=== PATIENT | male | born 1960 | race Caucasian/White ===

== ENCOUNTER 2017-06-10 19:35 | Inpatient (IN) ==
[2017-06-10] MEDS ORDERED: 0.9 % SODIUM CHLORIDE 1,000 ML IV ONE ×2 (19:44→21:10)
[2017-06-10] MEDS ORDERED: ONDANSETRON 4 MG/2 ML VIAL IV ONE (19:55)
[2017-06-10] MEDS ORDERED: ONDANSETRON ODT 4 MG TABLET SL ONE (19:55)
[2017-06-10] MEDS ORDERED: ONDANSETRON ODT 4 MG TABLET ONE (20:02)
[2017-06-10] MEDS ORDERED: INSULIN REGULAR, HUMAN 1 UNIT/0.01 ML UNIT IV ONE (20:11)
[2017-06-10] MEDS ORDERED: INSULIN REGULAR, HUMAN 50 UNIT in 0.9 % SODIUM CHLORIDE 99.5 ML IV ONE (20:12)
[2017-06-10] MEDS ORDERED: INSULIN REGULAR, HUMAN 1 UNIT/0.01 ML UNIT ONE (20:23)
[2017-06-10] MEDS ORDERED: LORazepam 2 MG/ML VIAL IV ONE (20:29)
--- NOTE | 2017-06-10 20:37 | Emergency Department Note ---
General Adult HPI - General Chief complaint: Blood Sugar Problem Stated complaint: Hyperglycemic Time Seen by Provider: 06/10/17 19:48 - History of Present Illness HPI Narrative: 56-year-old male presents with high blood sugar and vomiting. States he woke up this morning about about 6 AM and was not feeling well. He notices insulin pump had fallen out and the site was not in contact with his skin. He change sites and thought it was working again. States he did not feel good so he slept most the day. We will get this afternoon to find that his pump was still not working, or he does not believe it was working. States at home his blood sugars reading high. He is vomited multiple times. Generally does not feel well and has pain all over. Also feels very anxious. Yesterday he felt fine without any illness. Denies fever. No cough or cold symptoms. Associated symptoms: Reports: malaise, nausea/vomiting. Denies: chest pain, cough, diaphoresis, headaches, shortness of breath, syncope, weakness - Related Data Home Medications Medication Instructions Recorded Confirmed subcutaneous insulin pump See Dose Instructions SQ .MEDSUPPLY 02/08/15 06/11/17 Omeprazole [PriLOSEC] 20 mg PO ACB 06/10/17 06/10/17 Allergies Allergy/AdvReac Type Severity Reaction Status Date / Time No Known Drug Allergies Allergy Verified 06/10/17 19:42 Review of Systems All systems ED: reviewed and negative except as stated. 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) Elevated blood-pressure reading without diagnosis of hypertension (Chronic) Pancreatitis (Chronic) Prostate abscess (Chronic) Chews tobacco (Chronic) Esophagitis (Chronic) Adenomatous colon polyp (Chronic) Hypoactive sexual desire disorder (Chronic) Iritis (Chronic) Tubular adenoma (Inactive 09/21/14) Hypoglycemia (Resolved 08/08/14) Insulin-dependent diabetes mellitus with ketoacidosis (Inactive) Anemia (Inactive) Past Surgical History History of neck surgery (Resolved) History of esophagogastroduodenoscopy (Resolved 02/15/13) History of colonoscopy with polypectomy (Resolved 07/28/14) Medical history: Reports: diabetes, hypertension, other (Pancreatitis) Surgical history ED: Reports: other (Neck surgery) - Social History smoking status: Smokeless tobacco Alcohol use: Reports: None Drug use: Reports: none Physical Exam - General Limitations: no limitations General appearance: anxious, other (Vomiting) - Head Head exam: atraumatic, normocephalic, normal inspection - Eye Eye exam: Present: normal appearance. Absent: conjunctival injection - ENT ENT exam: normal exam, normal oropharynx, mucous membranes moist (Fruity odor to breath), TM's normal bilaterally, normal external ear exam - Neck Neck exam: Present: normal inspection, trachea midline. Absent: lymphadenopathy - Chest Chest inspection: Present: normal inspection, symmetric chest wall rise - Respiratory Respiratory exam: Present: normal lung sounds bilaterally. Absent: respiratory distress, wheezes, accessory muscle use - Cardiovascular Cardiovascular exam: Present: regular rate, normal heart sounds - Abdominal Exam Abdominal exam: Present: soft, normal bowel sounds. Absent: distention, tenderness, guarding - Extremities Exam Extremities exam: Present: normal inspection, normal capillary refill - Neurological Exam Neurological exam: Present: alert, oriented X3, normal gait - Psychiatric Psychiatric exam: Present: normal affect, normal mood - Skin Skin exam: Present: warm, dry, intact, normal color, other (Flushed and warm) Course Course Narrative: Patient was placed on an insulin drip per DKA protocol. Protocol was initiated. Dr. Mann the hospitalist was contacted who agrees to admit patient and assume care. Vital Signs Temperature 97.0 F 06/10/17 19:36 Pulse Rate 106 H 06/10/17 19:36 Respiratory Rate 28 H 06/10/17 19:36 Blood Pressure 125/63 06/10/17 19:36 Pulse Oximetry (%) 100 06/10/17 19:36 Temperature 99.4 F H 06/11/17 08:00 Pulse Rate 96 H 06/11/17 07:35 Respiratory Rate 13 06/11/17 09:00 Blood Pressure 108/59 06/11/17 09:00 Pulse Oximetry (%) 100 06/11/17 09:00 Medical Decision Making - Lab Data Lab results reviewed: Yes I reviewed the patient's lab results. Result diagrams: 06/11/17 08:00 06/11/17 08:00 Lab Results 06/10/17 06/10/17 06/10/17 Range/Units 00:05 19:46 19:46 WBC 31.1 H* (4.5-11.0) K/mcL RBC 4.21 L (4.50-5.90) M/mcL Hgb 14.3 (13.5-16.5) g/dL Hct 43.2 (41.0-55.0) % POC Hct (41.0-55.0) % MCV 102.7 H (80.0-100.0) fL MCH 34.1 H (26.0-34.0) pg MCHC 33.2 (31.0-36.0) g/dL RDW 12.4 (11.5-14.5) % Plt Count 288 (140-440) K/mcL MPV 11.1 H (7.4-10.4) fL Gran % 88.0 H (38.0-78.0) % Lymph % (Auto) 4.6 L (15.5-49.0) % [place] % (Auto) 6.2 (1.0-12.0) % Eos % (Auto) 0.7 (0.0-7.0) % Baso % (Auto) 0.5 (0.0-2.0) % Gran # 27.4 H (1.8-8.0) K/mcL Lymph # (Auto) 1.4 L (1.5-4.8) K/mcL [place] # (Auto) 1.9 H (0.1-0.9) K/mcL Eos # (Auto) 0.2 (0.0-0.7) K/mcL Baso # (Auto) 0.2 (0.0-0.3) K/mcL Differential Comment Y ABG Methemoglobin 0.3 L (0.4-1.5) % VBG pH 7.40 (7.32-7.42) U VBG pCO2 37.4 L (41.0-51.0) mmHg VBG pO2 60 H (25-40) mmHg VBG HCO3 22.6 L (24.0-28.0) mmol/L VBG Total CO2 23.7 L (25.0-29.0) mmol/L VBG O2 Saturation 85.7 H (40.0-70.0) % VBG Base Excess -1.9 (-2.0-2.0) VBG Lactic Acid (0.5-2.2) mmol/L Carboxyhemoglobin 3.0 H (0.0-1.5) % THgb Total Hemoglobin 11.6 L (13.5-16.5) gm/dL O2 Delivery Level Not Reportable POC Sodium (133-145) mmol/L Sodium 133 (133-145) mmol/L POC Potassium (3.3-5.1) mmol/L Potassium 5.4 H (3.3-5.1) mmol/L POC Chloride (96-108) mmol/L Chloride 67 L (96-108) mmol/L Carbon Dioxide 8 L* (22-30) mmol/L POC Total CO2 (22-30) mmol/L Anion Gap Not Reportable POC BUN (6-20) mg/dl BUN 35 H (6-20) mg/dl Creatinine 3.0 H (0.7-1.2) mg/dl POC Creatinine (0.7-1.2) mg/dl GFR Calculation 22 Glucose 803 H* (70-105) mg/dL POC Glucose (70-105) mg/dL Calcium 10.7 H (8.6-10.4) mg/dl POC WB Ioniz Calcium (1.16-1.32) mmol/L Total Bilirubin 0.7 (0.0-1.0) mg/dL AST 30 (0-37) U/l ALT 25 (0-40) U/l Alkaline Phosphatase 94 (39-117) U/L Troponin T (0-0.03) ng/ml Total Protein 7.7 (5.9-8.4) gm/dL Albumin 4.6 (3.2-5.2) gm/dL Globulin 3.1 (2.2-3.7) gm/dL Albumin/Globulin Ratio 1.5 (1.0-2.3) Beta-Hydroxybutyrate (< 0.27) mmol/L 06/10/17 06/10/17 06/10/17 Range/Units 19:46 20:10 20:18 WBC (4.5-11.0) K/mcL RBC (4.50-5.90) M/mcL Hgb (13.5-16.5) g/dL Hct (41.0-55.0) % POC Hct 47.0 (41.0-55.0) % MCV (80.0-100.0) fL MCH (26.0-34.0) pg MCHC (31.0-36.0) g/dL RDW (11.5-14.5) % Plt Count (140-440) K/mcL MPV (7.4-10.4) fL Gran % (38.0-78.0) % Lymph % (Auto) (15.5-49.0) % [place] % (Auto) (1.0-12.0) % Eos % (Auto) (0.0-7.0) % Baso % (Auto) (0.0-2.0) % Gran # (1.8-8.0) K/mcL Lymph # (Auto) (1.5-4.8) K/mcL [place] # (Auto) (0.1-0.9) K/mcL Eos # (Auto) (0.0-0.7) K/mcL Baso # (Auto) (0.0-0.3) K/mcL Differential Comment ABG Methemoglobin 0 L (0.4-1.5) % VBG pH 7.12 L* (7.32-7.42) U VBG pCO2 32.4 L (41.0-51.0) mmHg VBG pO2 76 H (25-40) mmHg VBG HCO3 10.3 L* (24.0-28.0) mmol/L VBG Total CO2 11.3 L (25.0-29.0) mmol/L VBG O2 Saturation 86.5 H (40.0-70.0) % VBG Base Excess -17.9 L (-2.0-2.0) VBG Lactic Acid 11.5 H* (0.5-2.2) mmol/L Carboxyhemoglobin 2.6 H (0.0-1.5) % THgb Total Hemoglobin 13.4 L (13.5-16.5) gm/dL O2 Delivery Level Not Reportable POC Sodium 129 L (133-145) mmol/L Sodium (133-145) mmol/L POC Potassium 5.0 (3.3-5.1) mmol/L Potassium (3.3-5.1) mmol/L POC Chloride 84 L (96-108) mmol/L Chloride (96-108) mmol/L Carbon Dioxide (22-30) mmol/L POC Total CO2 12 L (22-30) mmol/L Anion Gap POC BUN 33 H (6-20) mg/dl BUN (6-20) mg/dl Creatinine (0.7-1.2) mg/dl POC Creatinine 2.7 H (0.7-1.2) mg/dl GFR Calculation Glucose (70-105) mg/dL POC Glucose > 700 H* (70-105) mg/dL Calcium (8.6-10.4) mg/dl POC WB Ioniz Calcium 1.12 L (1.16-1.32) mmol/L Total Bilirubin (0.0-1.0) mg/dL AST (0-37) U/l ALT (0-40) U/l Alkaline Phosphatase (39-117) U/L Troponin T (0-0.03) ng/ml Total Protein (5.9-8.4) gm/dL Albumin (3.2-5.2) gm/dL Globulin (2.2-3.7) gm/dL Albumin/Globulin Ratio (1.0-2.3) Beta-Hydroxybutyrate (< 0.27) mmol/L 06/10/17 06/10/17 06/10/17 Range/Units 22:01 22:01 23:20 WBC (4.5-11.0) K/mcL RBC (4.50-5.90) M/mcL Hgb (13.5-16.5) g/dL Hct (41.0-55.0) % POC Hct (41.0-55.0) % MCV (80.0-100.0) fL MCH (26.0-34.0) pg MCHC (31.0-36.0) g/dL RDW (11.5-14.5) % Plt Count (140-440) K/mcL MPV (7.4-10.4) fL Gran % (38.0-78.0) % Lymph % (Auto) (15.5-49.0) % [place] % (Auto) (1.0-12.0) % Eos % (Auto) (0.0-7.0) % Baso % (Auto) (0.0-2.0) % Gran # (1.8-8.0) K/mcL Lymph # (Auto) (1.5-4.8) K/mcL [place] # (Auto) (0.1-0.9) K/mcL Eos # (Auto) (0.0-0.7) K/mcL Baso # (Auto) (0.0-0.3) K/mcL Differential Comment ABG Methemoglobin (0.4-1.5) % VBG pH (7.32-7.42) U VBG pCO2 (41.0-51.0) mmHg VBG pO2 (25-40) mmHg VBG HCO3 (24.0-28.0) mmol/L VBG Total CO2 (25.0-29.0) mmol/L VBG O2 Saturation (40.0-70.0) % VBG Base Excess (-2.0-2.0) VBG Lactic Acid 3.6 H (0.5-2.2) mmol/L Carboxyhemoglobin (0.0-1.5) % THgb Total Hemoglobin (13.5-16.5) gm/dL O2 Delivery Level POC Sodium (133-145) mmol/L Sodium (133-145) mmol/L POC Potassium (3.3-5.1) mmol/L Potassium (3.3-5.1) mmol/L POC Chloride (96-108) mmol/L Chloride (96-108) mmol/L Carbon Dioxide (22-30) mmol/L POC Total CO2 (22-30) mmol/L Anion Gap POC BUN (6-20) mg/dl BUN (6-20) mg/dl Creatinine (0.7-1.2) mg/dl POC Creatinine (0.7-1.2) mg/dl GFR Calculation Glucose (70-105) mg/dL POC Glucose (70-105) mg/dL Calcium (8.6-10.4) mg/dl POC WB Ioniz Calcium (1.16-1.32) mmol/L Total Bilirubin (0.0-1.0) mg/dL AST (0-37) U/l ALT (0-40) U/l Alkaline Phosphatase (39-117) U/L Troponin T < 0.01 (0-0.03) ng/ml Total Protein (5.9-8.4) gm/dL Albumin (3.2-5.2) gm/dL Globulin (2.2-3.7) gm/dL Albumin/Globulin Ratio (1.0-2.3) Beta-Hydroxybutyrate 13.10 H (< 0.27) mmol/L - Radiology Data Radiology results reviewed: Yes I reviewed the patient's radiology results. Disposition Pt seen by BREAD DISTRIBUTOR/PA only: Yes Clinical Impression: Hyperglycemic crisis in diabetes mellitus Disposition: Xfer As Inpt ([facility]) Condition: Fair
[2017-06-10 20:40] LABS: ABG Methemoglobin 0 % (0.4-1.5); VBG Base Excess -17.9 (-2.0-2.0); VBG HCO3 10.3 mmol/L (24.0-28.0); VBG Oxygen Saturation 86.5 % (40.0-70.0); VBG PCO2 32.4 mmHg (41.0-51.0); VBG PH 7.12 U (7.32-7.42); VBG PO2 76 mmHg (25-40); VBG Total CO2 11.3 mmol/L (25.0-29.0)
[2017-06-10 20:48] LABS: Basophils # (Auto) 0.2 K/mcL (0.0-0.3); Basophils % (Auto) 0.5 % (0.0-2.0); Eosinophils # (Auto) 0.2 K/mcL (0.0-0.7); Eosinophils % (Auto) 0.7 % (0.0-7.0); Lymphocytes # (Auto) 1.4 K/mcL (1.5-4.8); Lymphocytes % (Auto) 4.6 % (15.5-49.0); Mean Cell Volume 102.7 fL (80.0-100.0); Mean Corpuscular HGB Conc 33.2 g/dL (31.0-36.0); Mean Corpuscular Hemoglobin 34.1 pg (26.0-34.0); Monocytes # (Auto) 1.9 K/mcL (0.1-0.9); Monocytes % (Auto) 6.2 % (1.0-12.0); Platelet Count 288 K/mcL (140-440); RBC 4.21 M/mcL (4.50-5.90); Red Cell Distribution Width 12.4 % (11.5-14.5)
[2017-06-10 21:08] LABS: ALT/SGPT 25 U/l (0-40); Albumin 4.6 gm/dL (3.2-5.2); Albumin/Globulin Ratio 1.5 (1.0-2.3); Alkaline Phosphatase 94 U/L (39-117); Blood Urea Nitrogen 35 mg/dl (6-20)
--- NOTE | 2017-06-10 22:47 | Internal Med History&Physical ---
Medical - H&P: HPI Patient information: Note initiated : 06/10/17 at 10:44 pm Service Date, if different from initiated Date: [] Patient: Prosper Alston a 56 y/o M admitted on for Hyperglycemic. Chief Complaint: N/V, elevated CBG History of present illness: Mr. Alston is a 56 year old M with a history of type 1 diabetes, diabetic neuropathy, hypertension, not on meds, gastroesophageal reflux who presents with nausea, vomiting and elevated glucose. History is obtained speaking with the patient, as well as reviewing old records which are summarized below as appropriate. Patient states for the last week or so he's been having trouble getting his blood glucoses under control. Apparently he is been having hypoglycemia at night at times. Story rambles at times, and sometimes difficult to follow. Apparently he turned off his insulin pump overnight secondary to low glucose, woke early in the morning and restarted it. He awoke at 6 AM and found that it was suspended in disconnected. He started the pump at another site and went back to sleep. 8 AM his glucose is greater than 600, he again tried another site and fell asleep again. Subsequently family came and woke him up. His glucose was still high. He tried to take 10 or 20 units subcutaneously from his insulin vial, but that did not help. During this time he developed nausea with vomiting. He had emesis about every 20 minutes during most of the day. He is now complaining of some chest pain from the emesis and retching. He's had no chest tightness or squeezing. He is also complaining of vision changes, his vision becoming blurry than white. Because of these ongoing symptoms of hyperglycemia, EMS was summoned and he was brought to the emergency department. In ED, initial [id number] testing showed a glucose greater than 700. Labs were drawn, he is bolus was insulin and started on insulin drip. Subsequently he is found to be significantly acidotic on VBG as well as on basic panel with low bicarbonate, had elevated lactate a 11. Beta-hydroxybutyrate elevated at 13.1, all consistent with DKA. As noted the patient denies any chest squeezing or tightness. He is feeling short of breath and is mildly dyspneic. He's had no cough or sputum production. He's had no fever but he has felt chilled after bouts of emesis today. He does not recall choking or thinking he swallowed any emesis. He chronically feels lightheaded when he stands, that's unchanged today, though may be a bit worse. He has chronic burning in his feet and decreased sensation in his feet. Denies a history of renal disease, no dysuria. No rashes. No sore throat, no headache, no sinus pressure or drainage. Patient is being admitted the intensive care unit for treatment of diabetic ketoacidosis. Review of systems: Except as noted in the HPI, the remainder of a 10 point ROS is negative. Medical - H&P: PMH Medical history: Type I DM, diagnosed in his 30's Diabetic neuropathy Diabetic retinopathy Iritis GERD Hypertension, not on medications History of prostate abscess History of adenomatous polyp History of Pancreatitis History of osteomyelitis of right 4th toe Surgical history: Cervical spinal fusion, anterior approach Left finger amputation Right 4th toe amputation Pertinent family history: No history of diabetes Social history: Non-smoker of tobacco, occasional marijuana. Drinks about a drink a day. Medical - H&P: Meds Home Medications Medication Instructions Recorded Confirmed Type subcutaneous insulin pump See Dose Instructions .ROUTE 02/08/15 02/08/15 History .MEDSUPPLY Omeprazole [PriLOSEC] 20 mg PO ACB 06/10/17 06/10/17 History Allergies Allergy/AdvReac Type Severity Reaction Status Date / Time No Known Drug Allergies Allergy Verified 06/10/17 19:42 Medical - H&P: Exam - Constitutional Vitals: Temp Pulse Resp BP Pulse Ox 97.0 F 103 H 28 H 117/80 100 06/10/17 19:36 06/10/17 20:32 06/10/17 19:36 06/10/17 20:17 06/10/17 20:32 General appearance: average body habitus, mild distress - Head Head exam: Present: atraumatic, normal inspection - Eye Eye exam: Present: normal appearance. Absent: conjunctival injection, PERRL ( Right pupil 4 mm, sluggish to direct light; left pupil 3 mm, reactive to light) , scleral icterus - ENT ENT exam: Present: mucous membranes dry, normal oropharynx - Expanded ENT Exam Throat exam: Absent: post pharyngeal erythema - Neck Neck exam: Present: full ROM. Absent: lymphadenopathy, meningismus, thyromegaly - Respiratory Respiratory exam: Present: normal respiratory exam, CTAB. Absent: accessory muscle use, rhonchi, wheezes - Cardiovascular Cardiovascular exam: Present: normal rate and rhythm, systolic murmur. Absent: gallop - Expanded Cardiovascular Exam Type of murmur: Present: systolic Location: Present: apex Intensity: 2/6 Peripheral pulses: 2+: carotid (L), carotid (R) - GI/Abdominal GI/Abdominal exam: Present: normal bowel sounds, soft, tenderness. Absent: guarding, rebound - Extremities Exam Extremities exam: Present: normal inspection. Absent: joint swelling, pedal edema, tenderness - Back Exam Back exam: Present: normal inspection. Absent: CVA tenderness (L), CVA tenderness (R) - Neurological Exam Neurological exam: Present: alert, CN II-XII intact (except decreased VA and pupil abn as noted above. Responses rambling at times.) - Psychiatric Psychiatric exam: Present: normal affect - Skin Skin exam: Present: dry, warm. Absent: mottled Medical - H&P: Reslt - Labs CBC & Chem 7: 06/10/17 19:46 06/10/17 19:46 Labs: Short CBC 06/10/17 Range/Units 19:46 WBC 31.1 H* (4.5-11.0) K/mcL Hgb 14.3 (13.5-16.5) g/dL Hct 43.2 (41.0-55.0) % Plt Count 288 (140-440) K/mcL BMP 06/10/17 19:46 Sodium 133 Potassium 5.4 H Chloride 67 L Carbon Dioxide 8 L* BUN 35 H Creatinine 3.0 H Glucose 803 H* Calcium 10.7 H Liver Function 06/10/17 Range/Units 19:46 Total Bilirubin 0.7 (0.0-1.0) mg/dL AST 30 (0-37) U/l ALT 25 (0-40) U/l Alkaline Phosphatase 94 (39-117) U/L Albumin 4.6 (3.2-5.2) gm/dL Troponin <0.01 Beta hydroxybutyrate 13.1 - ABG Interpretation ABG results: 06/10/17 20:10 ABG Methemoglobin 0 L VBG pH 7.12 L* VBG pCO2 32.4 L VBG pO2 76 H VBG HCO3 10.3 L* VBG Total CO2 11.3 L VBG O2 Saturation 86.5 H VBG Base Excess -17.9 L - EKG Data -: EKG Reviewed by Myself EKG shows normal: sinus rhythm, ST-T waves (no injury pattern) - Imaging and Cardiology Chest x-ray Status: image reviewed by me Additional comments: Clear lung hoffmann Medical - H&P: A/P (1) Diabetic ketoacidosis associated with type 1 diabetes mellitus Problem details: Suspect related to malfunction of insulin pump Current visit : Yes Status: Acute (2) Lactic acid acidosis Problem details: Suspect from DKA/D-lactic acidosis; lower suspicion of sepsis Current visit: Yes Status: Acute (3) Acute renal failure (ARF) Current visit: Yes Status: Acute - Narrative A/P Narrative: 56 y/o with Type 1 DM, presents with nausea, vomiting and elevated CBG at home. He has had problems controlling glucose at home and had to replace his pump access 2-3 times in early and mid-morning, which appear to be malfunctioning. DKA. Suspected etiology is pump/needle malfunction. Has leukocytosis, but CXR is clear, and no pulmonary symptoms. No dysuria, but hasn't given a urine sample to rule out UTI. No other infectious source. Troponin is <0.01. Plan: -Admit to ICU -Insulin gtt -IV fluid resuscitation -Serial electrolytes, phosphorous -Replete potassium, phos and others PRN Acute renal failure. Patient w/o history of renal disease per his history, and limited outpatient records. Suspect secondary to pre-renal causes. Plan: -IVF -Trend Cr -Codi and UCr for FENa -F/U UA for evidence of casts Lactic acidosis. Suspect secondary to DKA (D-lactic acidosis) and not sepsis. No source of infection identified, though UA pending. Plan: -Trend lactate after fluids -If fever or becomes unstable, will culture and begin empiric antibiotics Leukocytosis. Possible stress response. As above, lower suspicion of sepsis. Plan: -Follow with therapy of DKA. Hyperkalema. Likely due to acidosis. Will need to monitor for subsequent hypokalemia. Plan: Monitor, replete is becomes hypokalemic Code Status: FULL CODE Prophy: PPI and enoxaparin.
[2017-06-10] MEDS ORDERED: HYDROmorphone 2 MG/ML SYRINGE IV PRN (23:57)
[2017-06-10] MEDS ORDERED: ACETAMINOPHEN 325 MG TABLET PO PRN (23:57)
[2017-06-10] MEDS ORDERED: DEXTROSE 50% 50 ML SYRINGE IV PRN (23:57)
[2017-06-11] MEDS: 0.9 % SODIUM CHLORIDE 1,000 ML IV SCH ×4 (00:01→22:14)
[2017-06-11] MEDS ORDERED: INSULIN REGULAR, HUMAN 1 UNIT/0.01 ML UNIT ONE ×4 (00:12→04:09)
[2017-06-11 01:07] LABS: ABG Methemoglobin 0.3 % (0.4-1.5); VBG Base Excess -1.9 (-2.0-2.0); VBG HCO3 22.6 mmol/L (24.0-28.0); VBG Oxygen Saturation 85.7 % (40.0-70.0); VBG PCO2 37.4 mmHg (41.0-51.0); VBG PO2 60 mmHg (25-40); VBG Total CO2 23.7 mmol/L (25.0-29.0)
[2017-06-11 01:27] LABS: Blood Urea Nitrogen 35 mg/dl (6-20)
[2017-06-11] MEDS: INSULIN REGULAR, HUMAN 50 UNIT in 0.9 % SODIUM CHLORIDE 100 ML IV SCH ×2 (04:12→08:13)
[2017-06-11] MEDS ORDERED: PANTOPRAZOLE 40 MG TABLET ONE (04:22)
[2017-06-11] MEDS ORDERED: ONDANSETRON 4 MG/2 ML VIAL ONE (04:25)
[2017-06-11] MEDS: DEXTROSE 5%-1/2NS 1,000 ML IV SCH ×4 (05:11→22:14)
[2017-06-11 05:37] LABS: ABG Methemoglobin 0.3 % (0.4-1.5); VBG Base Excess 3.1 (-2.0-2.0); VBG HCO3 26.7 mmol/L (24.0-28.0); VBG Oxygen Saturation 92.6 % (40.0-70.0); VBG PH 7.48 U (7.32-7.42); VBG PO2 108 mmHg (25-40); VBG Total CO2 27.8 mmol/L (25.0-29.0)
[2017-06-11] MEDS: 0.9 % SODIUM CHLORIDE 10 ML SYRINGE IV SCH ×3 (05:57→22:16)
--- NOTE | 2017-06-11 06:00 | XRay Report ---
CLINICAL INFORMATION: Elevated white blood cell count and fever COMPARISON: None. FINDINGS:The heart size, mediastinum and pulmonary vessels are unremarkable. The lungs are clear. Prominent, yet normal, nipple shadows are symmetric over both midlungs. There are no effusions. The bones and soft tissues are within normal limits. IMPRESSION: Normal chest. Interpreted and Authenticated by: Shane Ha 06/11/17
[2017-06-11 06:47] LABS: ALT/SGPT 17 U/l (0-40); Albumin/Globulin Ratio 1.3 (1.0-2.3); Alkaline Phosphatase 57 U/L (39-117); Bilirubin,Direct < 0.2 mg/dL (0.0-0.3); Blood Urea Nitrogen 34 mg/dl (6-20); Gamma Glutamyl Transpeptidase 29 U/L (8-61); Magnesium 1.9 mg/dL (1.6-2.5); Uric Acid 8.1 mg/dL (2.5-8.0)
[2017-06-11] MEDS: PANTOPRAZOLE 40 MG TABLET PO SCH (07:19)
[2017-06-11] MEDS: ENOXAPARIN 40 MG/0.4 ML SYRINGE SQ SCH (07:21)
[2017-06-11] MEDS ORDERED: POTASSIUM PHOSPHATE 20 MEQ in DEXTROSE 5% IN WATER 250 ML IV ONE (08:03)
[2017-06-11] MEDS: ONDANSETRON 4 MG/2 ML VIAL IV PRN ×4 (08:11→23:48)
[2017-06-11] MEDS ORDERED: DEXTROSE 50% 50 ML SYRINGE IV PRN (08:45)
[2017-06-11] MEDS: DEXTROSE 50% 50 ML VIAL IV PRN ×2 (08:55→13:25)
[2017-06-11 09:01] LABS: Basophils # (Auto) 0 K/mcL (0.0-0.3); Basophils % (Auto) 0.2 % (0.0-2.0); Eosinophils # (Auto) 0.2 K/mcL (0.0-0.7); Granulocytes % (Auto) 84.1 % (38.0-78.0); Lymphocytes % (Auto) 8.4 % (15.5-49.0); Mean Cell Volume 100.8 fL (80.0-100.0); Mean Corpuscular HGB Conc 34.5 g/dL (31.0-36.0); Mean Corpuscular Hemoglobin 34.8 pg (26.0-34.0); Monocytes # (Auto) 1.5 K/mcL (0.1-0.9); Monocytes % (Auto) 6.3 % (1.0-12.0); Platelet Count 214 K/mcL (140-440); RBC 3.19 M/mcL (4.50-5.90); Red Cell Distribution Width 12.9 % (11.5-14.5)
[2017-06-11 09:14] LABS: Blood Urea Nitrogen 33 mg/dl (6-20)
[2017-06-11 12:20] LABS: Appearance,Urine HAZY; Bacteria,Urine 0 /hpf (0); Bilirubin,Urine NEG (NEG); Color,Urine YELLOW; Glucose,Urine (UA) >=500 mg/dL (NEG); Leukocyte Esterase,Urine NEG /uL (NEG); Mucus,Urine FEW /hpf (0); Nitrate,Urine NEG (NEG); Protein,Urine NEG (NEG); Specific Gravity,Urine 1.022 (1.000-1.035); Urine Blood NEG mg/dL (<0.03); Urine Budding Yeast FEW /hpf (0); Urine Hyaline Cast 1 /lpf (0-2); Urine RBC 0 /hpf (0-1); Urine Squamous Epithelial Cell 1 /hpf (0-4); Urine WBC < 1 /hpf (0-4); Urobilinogen,Urine NEG (NEG)
[2017-06-11 13:19] LABS: Blood Urea Nitrogen 31 mg/dl (6-20)
[2017-06-11] MEDS ORDERED: INSULIN GLARGINE, HUMAN 1 UNIT/0.01 ML SQ ONE (14:27)
[2017-06-11] MEDS ORDERED: PROCHLORPERAZINE 10 MG/2 ML VIAL IV PRN (14:30)
--- NOTE | 2017-06-11 14:42 | Internal Med Progress Note ---
Medical - PN: Subj Patient information: Note initiated : 06/11/17 at 2:36 pm Service Date, if different from initiated Date: [] Patient: Prosper Alston 56 y/o M admitted on 06/10/17 for Hyperglycemic. Chief Complaint: f/u DKA Interval history: June 11: Feeling somewhat better this afternoon, anion gap is closed, has D5 and fluids, minimal basal insulin infusion. Has chronic nausea, did have some emesis after trying liquids this morning. His appetite is chronically very poor. He also has chronic lightheadedness. His been evaluated at [facility] in the past. Chest pain improved/resolved (from emesis). No dyspnea. No diarrhea. No dysuria, though urine output is decreased. - Constitutional Vitals: Vital Signs Temp Pulse Resp BP Pulse Ox 98.6 F 88 20 130/70 96 06/11/17 12:42 06/11/17 14:00 06/11/17 14:00 06/11/17 14:00 06/11/17 14:00 Period Temp Pulse Resp BP Sys/[place] Pulse Ox Last 24 Hr 97.0 F-99.4 F 88-114 13-32 85-142/34-86 79-100 Intake and Output 06/11/17 06/11/17 06/11/17 05:59 13:59 21:59 Intake Total 3679 / 3679 1353.0455 / 1353.0455 Output Total 250 / 250 250 / 250 Balance 3429 / 3429 1103.0455 / 1103.0455 Weight 153 lb 0.8 oz Intake & Output: Intake & Output 06/11/17 06/11/17 06/11/17 05:59 13:59 21:59 Intake Total 3679 / 3679 1353.0455 / 1353.0455 Output Total 250 / 250 250 / 250 Balance 3429 / 3429 1103.0455 / 1103.0455 Weight 153 lb 0.8 oz Intake: IV 3679 / 3679 1353.0455 / 1353.0455 Sodium Chloride 0.9% 1,000 ml @ 3567 / 3567 500 mls/hr IV .Q2H NAZ Rx#: [id number] Dextrose 5%-1/2Ns IV Solution 1 1000 / 1000 ,000 ml @ 150 mls/hr IV .Q6H40M NAZ Rx#:[id number] HumuLIN R 50 UNIT In Sodium 112 / 112 98.5 / 98.5 Chloride 0.9% 100 ml @ 3.6 UNIT /HR 7.23 mls/hr IV DUR [facility] Rx#: [id number] Potassium Phosphate 20 Meq In 254.5455 / 254.5455 Dextrose 5% in Water 250 ml @ 127.273 mls/hr IV ONCE ONE Rx#: [id number] Oral 0 / 0 Output: Void Amount 250 / 250 250 / 250 Other: # Bowel Movements 0 Medical - PN: Obj Da - Labs CBC & Chem 7: 06/11/17 08:00 06/11/17 12:09 Labs: Abnormal Lab Results 06/11/17 06/11/17 06/11/17 12:09 11:39 08:00 WBC 23.6 H RBC 3.19 L Hgb 11.1 L Hct 32.1 L MCV 100.8 H MCH 34.8 H MPV Gran % 84.1 H Lymph % (Auto) 8.4 L Gran # 19.8 H Lymph # (Auto) [place] # (Auto) 1.5 H ABG Methemoglobin VBG pH VBG pCO2 VBG pO2 VBG HCO3 VBG Total CO2 VBG O2 Saturation VBG Base Excess VBG Lactic Acid Carboxyhemoglobin Total Hemoglobin POC Sodium Potassium POC Chloride Chloride Carbon Dioxide POC Total CO2 Anion Gap POC BUN BUN 31 H Creatinine 1.8 H POC Creatinine Glucose POC Glucose Uric Acid Calcium 8.1 L POC WB Ioniz Calcium Lactate Dehydrogenase Total Protein Albumin Beta-Hydroxybutyrate Urine Glucose (UA) >=500 A Urine Ketones 5/tr A Urine Yeast (Budding) Few A 06/11/17 06/11/17 06/11/17 08:00 03:58 03:58 WBC RBC Hgb Hct MCV MCH MPV Gran % Lymph % (Auto) Gran # Lymph # (Auto) [place] # (Auto) ABG Methemoglobin VBG pH VBG pCO2 VBG pO2 VBG HCO3 VBG Total CO2 VBG O2 Saturation VBG Base Excess VBG Lactic Acid 2.5 H Carboxyhemoglobin Total Hemoglobin POC Sodium Potassium POC Chloride Chloride 95 L 93 L Carbon Dioxide POC Total CO2 Anion Gap POC BUN BUN 33 H 34 H Creatinine 1.9 H 2.1 H POC Creatinine Glucose 216 H POC Glucose Uric Acid 8.1 H Calcium 8.1 L 8.2 L POC WB Ioniz Calcium Lactate Dehydrogenase 268 H Total Protein 5.4 L Albumin 3.0 L Beta-Hydroxybutyrate Urine Glucose (UA) Urine Ketones Urine Yeast (Budding) 06/11/17 06/11/17 06/10/17 03:58 00:05 23:20 WBC RBC Hgb Hct MCV MCH MPV Gran % Lymph % (Auto) Gran # Lymph # (Auto) [place] # (Auto) ABG Methemoglobin 0.3 L VBG pH 7.48 H VBG pCO2 37.0 L VBG pO2 108 H VBG HCO3 VBG Total CO2 VBG O2 Saturation 92.6 H VBG Base Excess 3.1 H VBG Lactic Acid 3.6 H Carboxyhemoglobin 5.4 H Total Hemoglobin 10.6 L POC Sodium Potassium POC Chloride Chloride 85 L Carbon Dioxide 21 L POC Total CO2 Anion Gap 28.0 H POC BUN BUN 35 H Creatinine 2.4 H POC Creatinine Glucose 460 H* POC Glucose Uric Acid Calcium 8.5 L POC WB Ioniz Calcium Lactate Dehydrogenase Total Protein Albumin Beta-Hydroxybutyrate Urine Glucose (UA) Urine Ketones Urine Yeast (Budding) 06/10/17 06/10/17 06/10/17 22:01 20:18 20:10 WBC RBC Hgb Hct MCV MCH MPV Gran % Lymph % (Auto) Gran # Lymph # (Auto) [place] # (Auto) ABG Methemoglobin 0 L VBG pH 7.12 L* VBG pCO2 32.4 L VBG pO2 76 H VBG HCO3 10.3 L* VBG Total CO2 11.3 L VBG O2 Saturation 86.5 H VBG Base Excess -17.9 L VBG Lactic Acid 11.5 H* Carboxyhemoglobin 2.6 H Total Hemoglobin 13.4 L POC Sodium Potassium POC Chloride Chloride Carbon Dioxide POC Total CO2 Anion Gap POC BUN BUN Creatinine POC Creatinine Glucose POC Glucose Uric Acid Calcium POC WB Ioniz Calcium Lactate Dehydrogenase Total Protein Albumin Beta-Hydroxybutyrate 13.10 H Urine Glucose (UA) Urine Ketones Urine Yeast (Budding) 06/10/17 06/10/17 06/10/17 19:46 19:46 19:46 WBC 31.1 H* RBC 4.21 L Hgb Hct MCV 102.7 H MCH 34.1 H MPV 11.1 H Gran % 88.0 H Lymph % (Auto) 4.6 L Gran # 27.4 H Lymph # (Auto) 1.4 L [place] # (Auto) 1.9 H ABG Methemoglobin VBG pH VBG pCO2 VBG pO2 VBG HCO3 VBG Total CO2 VBG O2 Saturation VBG Base Excess VBG Lactic Acid Carboxyhemoglobin Total Hemoglobin POC Sodium 129 L Potassium 5.4 H POC Chloride 84 L Chloride 67 L Carbon Dioxide 8 L* POC Total CO2 12 L Anion Gap POC BUN 33 H BUN 35 H Creatinine 3.0 H POC Creatinine 2.7 H Glucose 803 H* POC Glucose > 700 H* Uric Acid Calcium 10.7 H POC WB Ioniz Calcium 1.12 L Lactate Dehydrogenase Total Protein Albumin Beta-Hydroxybutyrate Urine Glucose (UA) Urine Ketones Urine Yeast (Budding) 06/10/17 00:05 WBC RBC Hgb Hct MCV MCH MPV Gran % Lymph % (Auto) Gran # Lymph # (Auto) [place] # (Auto) ABG Methemoglobin 0.3 L VBG pH VBG pCO2 37.4 L VBG pO2 60 H VBG HCO3 22.6 L VBG Total CO2 23.7 L VBG O2 Saturation 85.7 H VBG Base Excess VBG Lactic Acid Carboxyhemoglobin 3.0 H Total Hemoglobin 11.6 L POC Sodium Potassium POC Chloride Chloride Carbon Dioxide POC Total CO2 Anion Gap POC BUN BUN Creatinine POC Creatinine Glucose POC Glucose Uric Acid Calcium POC WB Ioniz Calcium Lactate Dehydrogenase Total Protein Albumin Beta-Hydroxybutyrate Urine Glucose (UA) Urine Ketones Urine Yeast (Budding) Meds: Medications Acetaminophen (Tylenol) 650 mg PO Q4-6HP PRN PRN Reason: PAIN/FEVER > 101 Dextrose (Dextrose 50%) 50 ml IV UD PRN PRN Reason: Hypoglycemia Last Admin: 06/11/17 13:25 Dose: 50 ml Diagnostic Test (Pha) (Accu-Chek) 1 each FS Q1 [facility] Last Admin: 06/11/17 13:55 Dose: 1 each Enoxaparin Sodium (Lovenox) 40 mg SQ DAILY [facility] Last Admin: 06/11/17 07:21 Dose: 40 mg Hydromorphone HCl (Dilaudid) 0.5 mg IV Q2HP PRN PRN Reason: Pain Dextrose/Sodium Chloride (Dextrose 5%-1/2ns Iv Solution) 1,000 mls @ 150 mls/ hr IV .Q6H40M [facility] PRN Reason: Protocol Last Admin: 06/11/17 12:13 Dose: 150 mls/hr Insulin Glargine (Lantus) 12 unit SQ ONCE ONE Stop: 06/11/17 14:28 Insulin Glargine (Lantus) 24 unit SQ HS NAZ Insulin Human Lispro (Humalog) 0 unit SQ ACHS NAZ PRN Reason: Protocol Ondansetron HCl (Zofran) 4 mg IV Q4-6HP PRN PRN Reason: Nausea And Vomiting Last Admin: 06/11/17 12:14 Dose: 4 mg Pantoprazole Sodium (Protonix) 40 mg PO QAMAC [facility] Last Admin: 06/11/17 07:19 Dose: Not Given Prochlorperazine Edisylate (Compazine) 5 mg IV Q4HP PRN PRN Reason: Nausea And Vomiting Sodium Chloride (Saline Flush) 10 ml IV Q8 [facility] Last Admin: 06/11/17 12:12 Dose: 10 ml - ABG Interpretation ABG results: 06/10/17 06/10/17 06/11/17 00:05 20:10 03:58 ABG Methemoglobin 0.3 L 0 L 0.3 L VBG pH 7.40 7.12 L* 7.48 H VBG pCO2 37.4 L 32.4 L 37.0 L VBG pO2 60 H 76 H 108 H VBG HCO3 22.6 L 10.3 L* 26.7 VBG Total CO2 23.7 L 11.3 L 27.8 VBG O2 Saturation 85.7 H 86.5 H 92.6 H VBG Base Excess -1.9 -17.9 L 3.1 H Medical - PN: A/P - Time Spent With Patient Total time spent is greater than 50% in coordination of care (as documented) at patient's floor/unit and/or counseling patient: (1) Diabetic ketoacidosis associated with type 1 diabetes mellitus Problem details: Suspect related to malfunction of insulin pump Status: Acute Current Visit: Yes (2) Lactic acid acidosis Problem details: Suspect from DKA/D-lactic acidosis; lower suspicion of sepsis Status: Acute Current Visit: Yes (3) Acute renal failure (ARF) Status: Acute Current Visit: Yes - Narrative A/P Narrative: 56 y/o with Type 1 DM, presents with nausea, vomiting and elevated CBG at home. He has had problems controlling glucose at home and had to replace his pump access 2-3 times in early and mid-morning, which appear to be malfunctioning. DKA. Suspected etiology is pump/needle malfunction. Improving, anion gap is closed, bicarbonate has normalized. Urinalysis without evidence of infection. Leukocytosis has improved with treatment of DKA, still without infectious symptoms. Still suspect pump malfunction as cause of DKA Plan: -Transition off insulin gtt; 12 units of Lantus now, begin 24 units at bedtime this evening -Continue with IV fluid resuscitation, still appears volume short -Decrease frequency of serial electrolytes, did not have significant potassium or phosphorus issues -Diabetes education and sales technician home theater consults Acute renal failure. Patient w/o history of renal disease per his history. Has improved to some extent with fluid resuscitation. Still appears to be volume short. 300 mL of urine output overnight, 250 mL output today. Plan: -Continue IV fluids IVF -Continue to trend Cr Lactic acidosis. Resolved. Suspect secondary to DKA (D-lactic acidosis) and not sepsis. Leukocytosis. Possible stress response. Improving with treatment of DKA. Plan: Follow with Rx of DKA. Hyperkalema. Likely due to acidosis. Resolved overnight. Did not develop significant hypokalemia. Plan: Monitor, replete is becomes hypokalemic Lightheadedness. Apparently a chronic problem with the patient, associated with nausea. In discussion, was told that it may be due to impairment in " blood flow to the brain". Worsens when he stands up, consistent with autonomic dysfunction. Plan: Supportive care. Nausea. The chronic condition for the patient, evaluated extensively along with his lightheadedness. By his description, had a normal gastric emptying study in the past. Abdomen is soft and nontender and has bowel sounds, not consistent with gastroparesis. Plan: Zofran, Compazine, supportive care Code Status: FULL CODE Prophy: PPI and enoxaparin. Medical - PN: Qual - VTE Deep Vein Thrombosis/Pulmonary Embolism Present on Admission: No
[2017-06-11] MEDS: INSULIN LISPRO 1 UNIT/0.01 ML UNIT SQ SCH ×2 (16:12→22:19)
[2017-06-11 18:10] LABS: Blood Urea Nitrogen 27 mg/dl (6-20)
[2017-06-11] MEDS ORDERED: INSULIN GLARGINE, HUMAN 1 UNIT/0.01 ML SQ SCH (21:00)
[2017-06-12 05:10] LABS: Basophils # (Auto) 0 K/mcL (0.0-0.3); Basophils % (Auto) 0.2 % (0.0-2.0); Eosinophils # (Auto) 0 K/mcL (0.0-0.7); Eosinophils % (Auto) 0.3 % (0.0-7.0); Granulocytes % (Auto) 85.2 % (38.0-78.0); Lymphocytes # (Auto) 1.3 K/mcL (1.5-4.8); Lymphocytes % (Auto) 8.9 % (15.5-49.0); Mean Cell Volume 101.6 fL (80.0-100.0); Mean Corpuscular HGB Conc 34.4 g/dL (31.0-36.0); Mean Corpuscular Hemoglobin 34.9 pg (26.0-34.0); Monocytes # (Auto) 0.8 K/mcL (0.1-0.9); Monocytes % (Auto) 5.4 % (1.0-12.0); Platelet Count 177 K/mcL (140-440); RBC 3.26 M/mcL (4.50-5.90); Red Cell Distribution Width 13.2 % (11.5-14.5)
[2017-06-12 05:21] LABS: ALT/SGPT 17 U/l (0-40); Albumin/Globulin Ratio 1.3 (1.0-2.3); Alkaline Phosphatase 61 U/L (39-117); Bilirubin,Direct < 0.2 mg/dL (0.0-0.3); Blood Urea Nitrogen 16 mg/dl (6-20); Gamma Glutamyl Transpeptidase 28 U/L (8-61); Magnesium 1.8 mg/dL (1.6-2.5); Uric Acid 5.3 mg/dL (2.5-8.0)
[2017-06-12] MEDS: 0.9 % SODIUM CHLORIDE 10 ML SYRINGE IV SCH ×3 (05:31→21:05)
[2017-06-12] MEDS: PANTOPRAZOLE 40 MG TABLET PO SCH ×2 (07:21→17:19)
[2017-06-12] MEDS: INSULIN LISPRO 1 UNIT/0.01 ML UNIT SQ SCH ×4 (08:05→21:01)
[2017-06-12] MEDS: DEXTROSE 5%-1/2NS 1,000 ML IV SCH ×2 (08:05→16:10)
[2017-06-12] MEDS: ONDANSETRON 4 MG/2 ML VIAL IV PRN (08:12)
[2017-06-12] MEDS: ENOXAPARIN 40 MG/0.4 ML SYRINGE SQ SCH (09:38)
[2017-06-12] MEDS ORDERED: DEXTROSE 50% 50 ML VIAL IV PRN (09:46)
[2017-06-12] MEDS ORDERED: PROCHLORPERAZINE 10 MG/2 ML VIAL IV PRN (09:46)
[2017-06-12] MEDS ORDERED: ONDANSETRON 4 MG/2 ML VIAL IV PRN (09:46)
[2017-06-12] MEDS ORDERED: HYDROmorphone 2 MG/ML SYRINGE IV PRN (09:46)
[2017-06-12] MEDS ORDERED: POTASSIUM PHOSPHATE 40 MEQ in DEXTROSE 5% IN WATER 500 ML IV ONE (09:46)
[2017-06-12] MEDS ORDERED: ACETAMINOPHEN 325 MG TABLET PO PRN (09:46)
--- NOTE | 2017-06-12 11:20 | Internal Med Progress Note ---
Medical - PN: Subj Patient information: Note initiated : 06/12/17 at 11:18 am Service Date, if different from initiated Date: [] Patient: Prosper Alston 56 y/o M admitted on 06/10/17 for Hyperglycemic. Chief Complaint: follow up DKA Interval history: June 11: Feeling somewhat better this afternoon, anion gap is closed, has D5 and fluids, minimal basal insulin infusion. Has chronic nausea, did have some emesis after trying liquids this morning. His appetite is chronically very poor. He also has chronic lightheadedness. His been evaluated at [facility] in the past. Chest pain improved/resolved (from emesis). No dyspnea. No diarrhea. No dysuria, though urine output is decreased. June 12: Had persistent significant nausea and vomiting. Though somewhat better this morning. Having lower chest/subxiphoid pain when he attempts to swallow. No sensation of food sticking. Remains on a clear liquid diet. Pain improved after small dose of Tylenol today, now able to take clear liquids. Was on D5 half-normal saline infusion overnight, also received an acid supplemental fluids , maintaining adequate glucose control. We'll need to continue with dextrose and fluids until he is taking good oral intake to prevent recurrent DKA. - Constitutional Vitals: Vital Signs Temp Pulse Resp BP Pulse Ox 98.5 F 81 19 133/76 98 06/12/17 07:01 06/12/17 09:01 06/12/17 09:01 06/12/17 09:01 06/12/17 09:01 Period Temp Pulse Resp BP Sys/[place] Pulse Ox Last 24 Hr 98.5 F-99.3 F 76-89 13-25 89-156/56-86 84-99 Intake and Output 06/11/17 06/12/17 06/12/17 21:59 05:59 13:59 Intake Total 1306 / 1306 100 / 100 1652 / 1652 Output Total 475 / 475 950 / 950 675 / 675 Balance 831 / 831 -850 / -850 977 / 977 Weight 164 lb 9.6 oz Intake & Output: Intake & Output 06/11/17 06/12/17 06/12/17 21:59 05:59 13:59 Intake Total 1306 / 1306 100 / 100 1652 / 1652 Output Total 475 / 475 950 / 950 675 / 675 Balance 831 / 831 -850 / -850 977 / 977 Weight 164 lb 9.6 oz Intake: IV 1006 / 1006 982 / 982 Dextrose 5%-1/2Ns IV Solution 1 1000 / 1000 982 / 982 ,000 ml @ 100 mls/hr IV .Q10H NAZ Rx#:[id number] HumuLIN R 50 UNIT In Sodium 6 / 6 Chloride 0.9% 100 ml @ 3.6 UNIT /HR 7.23 mls/hr IV DUR NAZ Rx#: [id number] Oral 300 / 300 100 / 100 670 / 670 Output: Void Amount 475 / 475 950 / 950 675 / 675 Other: Meal Dinner Breakfast Percent of Meal Consumed 50% 50% Feeding Ability Independent Assist with Tray Set Up # Voids 0 1 General appearance: average body habitus, no acute distress - Eye Eye exam: Present: normal appearance. Absent: conjunctival injection - ENT ENT exam: Present: mucous membranes moist - Respiratory Respiratory exam: Present: normal respiratory exam, CTAB. Absent: accessory muscle use, rhonchi, wheezes - Cardiovascular Cardiovascular exam: Present: normal rate and rhythm. Absent: gallop, rubs - GI/Abdominal GI/Abdominal exam: Present: soft, diminished bowel sounds. Absent: guarding, organomegaly, rigid, tenderness (no epigastric tenderness) - Extremities Exam Extremities exam: Absent: calf tenderness, pedal edema - Neurological Exam Neurological exam: Present: alert, CN II-XII intact, motor sensory deficit ( peripheral neuropathy/decreased sensation), oriented X3 - Skin Skin exam: Present: dry, intact, warm Medical - PN: Obj Da - Labs CBC & Chem 7: 06/12/17 03:40 06/12/17 03:40 Labs: Abnormal Lab Results 06/12/17 06/12/17 06/11/17 03:40 03:40 16:33 WBC 14.1 H RBC 3.26 L Hgb 11.4 L Hct 33.1 L MCV 101.6 H MCH 34.9 H MPV Gran % 85.2 H Lymph % (Auto) 8.9 L Gran # 12.0 H Lymph # (Auto) 1.3 L [place] # (Auto) ABG Methemoglobin VBG pH VBG pCO2 VBG pO2 VBG HCO3 VBG Total CO2 VBG O2 Saturation VBG Base Excess VBG Lactic Acid Carboxyhemoglobin Total Hemoglobin POC Sodium Potassium POC Chloride Chloride 95 L Carbon Dioxide POC Total CO2 Anion Gap POC BUN BUN 27 H Creatinine 1.4 H 1.6 H POC Creatinine Glucose 165 H 199 H POC Glucose Uric Acid Calcium 8.2 L 8.1 L POC WB Ioniz Calcium Phosphorus 1.6 L Lactate Dehydrogenase Total Protein 5.4 L Albumin 3.0 L Beta-Hydroxybutyrate Urine Glucose (UA) Urine Ketones Urine Yeast (Budding) 06/11/17 06/11/17 06/11/17 12:09 11:39 08:00 WBC 23.6 H RBC 3.19 L Hgb 11.1 L Hct 32.1 L MCV 100.8 H MCH 34.8 H MPV Gran % 84.1 H Lymph % (Auto) 8.4 L Gran # 19.8 H Lymph # (Auto) [place] # (Auto) 1.5 H ABG Methemoglobin VBG pH VBG pCO2 VBG pO2 VBG HCO3 VBG Total CO2 VBG O2 Saturation VBG Base Excess VBG Lactic Acid Carboxyhemoglobin Total Hemoglobin POC Sodium Potassium POC Chloride Chloride Carbon Dioxide POC Total CO2 Anion Gap POC BUN BUN 31 H Creatinine 1.8 H POC Creatinine Glucose POC Glucose Uric Acid Calcium 8.1 L POC WB Ioniz Calcium Phosphorus Lactate Dehydrogenase Total Protein Albumin Beta-Hydroxybutyrate Urine Glucose (UA) >=500 A Urine Ketones 5/tr A Urine Yeast (Budding) Few A 06/11/17 06/11/17 06/11/17 08:00 03:58 03:58 WBC RBC Hgb Hct MCV MCH MPV Gran % Lymph % (Auto) Gran # Lymph # (Auto) [place] # (Auto) ABG Methemoglobin VBG pH VBG pCO2 VBG pO2 VBG HCO3 VBG Total CO2 VBG O2 Saturation VBG Base Excess VBG Lactic Acid 2.5 H Carboxyhemoglobin Total Hemoglobin POC Sodium Potassium POC Chloride Chloride 95 L 93 L Carbon Dioxide POC Total CO2 Anion Gap POC BUN BUN 33 H 34 H Creatinine 1.9 H 2.1 H POC Creatinine Glucose 216 H POC Glucose Uric Acid 8.1 H Calcium 8.1 L 8.2 L POC WB Ioniz Calcium Phosphorus Lactate Dehydrogenase 268 H Total Protein 5.4 L Albumin 3.0 L Beta-Hydroxybutyrate Urine Glucose (UA) Urine Ketones Urine Yeast (Budding) 06/11/17 06/11/17 06/10/17 03:58 00:05 23:20 WBC RBC Hgb Hct MCV MCH MPV Gran % Lymph % (Auto) Gran # Lymph # (Auto) [place] # (Auto) ABG Methemoglobin 0.3 L VBG pH 7.48 H VBG pCO2 37.0 L VBG pO2 108 H VBG HCO3 VBG Total CO2 VBG O2 Saturation 92.6 H VBG Base Excess 3.1 H VBG Lactic Acid 3.6 H Carboxyhemoglobin 5.4 H Total Hemoglobin 10.6 L POC Sodium Potassium POC Chloride Chloride 85 L Carbon Dioxide 21 L POC Total CO2 Anion Gap 28.0 H POC BUN BUN 35 H Creatinine 2.4 H POC Creatinine Glucose 460 H* POC Glucose Uric Acid Calcium 8.5 L POC WB Ioniz Calcium Phosphorus Lactate Dehydrogenase Total Protein Albumin Beta-Hydroxybutyrate Urine Glucose (UA) Urine Ketones Urine Yeast (Budding) 06/10/17 06/10/17 06/10/17 22:01 20:18 20:10 WBC RBC Hgb Hct MCV MCH MPV Gran % Lymph % (Auto) Gran # Lymph # (Auto) [place] # (Auto) ABG Methemoglobin 0 L VBG pH 7.12 L* VBG pCO2 32.4 L VBG pO2 76 H VBG HCO3 10.3 L* VBG Total CO2 11.3 L VBG O2 Saturation 86.5 H VBG Base Excess -17.9 L VBG Lactic Acid 11.5 H* Carboxyhemoglobin 2.6 H Total Hemoglobin 13.4 L POC Sodium Potassium POC Chloride Chloride Carbon Dioxide POC Total CO2 Anion Gap POC BUN BUN Creatinine POC Creatinine Glucose POC Glucose Uric Acid Calcium POC WB Ioniz Calcium Phosphorus Lactate Dehydrogenase Total Protein Albumin Beta-Hydroxybutyrate 13.10 H Urine Glucose (UA) Urine Ketones Urine Yeast (Budding) 06/10/17 06/10/17 06/10/17 19:46 19:46 19:46 WBC 31.1 H* RBC 4.21 L Hgb Hct MCV 102.7 H MCH 34.1 H MPV 11.1 H Gran % 88.0 H Lymph % (Auto) 4.6 L Gran # 27.4 H Lymph # (Auto) 1.4 L [place] # (Auto) 1.9 H ABG Methemoglobin VBG pH VBG pCO2 VBG pO2 VBG HCO3 VBG Total CO2 VBG O2 Saturation VBG Base Excess VBG Lactic Acid Carboxyhemoglobin Total Hemoglobin POC Sodium 129 L Potassium 5.4 H POC Chloride 84 L Chloride 67 L Carbon Dioxide 8 L* POC Total CO2 12 L Anion Gap POC BUN 33 H BUN 35 H Creatinine 3.0 H POC Creatinine 2.7 H Glucose 803 H* POC Glucose > 700 H* Uric Acid Calcium 10.7 H POC WB Ioniz Calcium 1.12 L Phosphorus Lactate Dehydrogenase Total Protein Albumin Beta-Hydroxybutyrate Urine Glucose (UA) Urine Ketones Urine Yeast (Budding) 06/10/17 00:05 WBC RBC Hgb Hct MCV MCH MPV Gran % Lymph % (Auto) Gran # Lymph # (Auto) [place] # (Auto) ABG Methemoglobin 0.3 L VBG pH VBG pCO2 37.4 L VBG pO2 60 H VBG HCO3 22.6 L VBG Total CO2 23.7 L VBG O2 Saturation 85.7 H VBG Base Excess VBG Lactic Acid Carboxyhemoglobin 3.0 H Total Hemoglobin 11.6 L POC Sodium Potassium POC Chloride Chloride Carbon Dioxide POC Total CO2 Anion Gap POC BUN BUN Creatinine POC Creatinine Glucose POC Glucose Uric Acid Calcium POC WB Ioniz Calcium Phosphorus Lactate Dehydrogenase Total Protein Albumin Beta-Hydroxybutyrate Urine Glucose (UA) Urine Ketones Urine Yeast (Budding) Meds: Medications Acetaminophen (Tylenol) 650 mg PO Q4-6HP PRN PRN Reason: PAIN/FEVER > 101 Dextrose (Dextrose 50%) 50 ml IV UD PRN PRN Reason: Hypoglycemia Diagnostic Test (Pha) (Accu-Chek) 1 each FS ACHS NAZ Enoxaparin Sodium (Lovenox) 40 mg SQ DAILY NAZ Hydromorphone HCl (Dilaudid) 0.5 mg IV Q2HP PRN PRN Reason: Pain Dextrose/Sodium Chloride (Dextrose 5%-1/2ns Iv Solution) 1,000 mls @ 100 mls/ hr IV .Q10H NAZ Potassium Phosphate 40 meq/ (Dextrose) 509.0909 mls @ 127.273 mls/hr IV ONCE ONE Stop: 06/12/17 13:45 Last Admin: 06/12/17 11:13 Dose: 130 mls/hr Insulin Glargine (Lantus) 24 unit SQ HS NAZ Insulin Human Lispro (Humalog) 0 unit SQ ACHS NAZ PRN Reason: Protocol Ondansetron HCl (Zofran) 4 mg IV Q4-6HP PRN PRN Reason: Nausea And Vomiting Pantoprazole Sodium (Protonix) 40 mg PO QAMAC NAZ Prochlorperazine Edisylate (Compazine) 5 mg IV Q4HP PRN PRN Reason: Nausea And Vomiting Sodium Chloride (Saline Flush) 10 ml IV Q8 NAZ - Impressions Tele: NSR - ABG Interpretation ABG results: 06/10/17 06/10/17 06/11/17 00:05 20:10 03:58 ABG Methemoglobin 0.3 L 0 L 0.3 L VBG pH 7.40 7.12 L* 7.48 H VBG pCO2 37.4 L 32.4 L 37.0 L VBG pO2 60 H 76 H 108 H VBG HCO3 22.6 L 10.3 L* 26.7 VBG Total CO2 23.7 L 11.3 L 27.8 VBG O2 Saturation 85.7 H 86.5 H 92.6 H VBG Base Excess -1.9 -17.9 L 3.1 H Medical - PN: A/P - Time Spent With Patient Total time spent is greater than 50% in coordination of care (as documented) at patient's floor/unit and/or counseling patient: Greater than 35 minutes (1) Diabetic ketoacidosis associated with type 1 diabetes mellitus Problem details: Suspect related to malfunction of insulin pump Status: Resolved Current Visit: Yes (2) Lactic acid acidosis Problem details: Suspect from DKA/D-lactic acidosis; lower suspicion of sepsis Status: Resolved Current Visit: Yes (3) Acute renal failure (ARF) Status: Acute Current Visit: Yes - Narrative A/P Narrative: 56 y/o with Type 1 DM, presents with nausea, vomiting and elevated CBG at home. He has had problems controlling glucose at home and had to replace his pump access 2-3 times in early and mid-morning, which appear to be malfunctioning. DKA. Suspected etiology is pump/needle malfunction. Improving/resolved. Anion gap closed Wed AM, bicarbonate has normalized. Urinalysis without evidence of infection. Leukocytosis has improved with treatment of DKA, still without infectious symptoms. Still suspect pump malfunction as cause of DKA. Basal rate had been 0.3 units per hour on his insulin pump, may have been too high of a dose is used concerned about hypoglycemia, as his appetite is poor and his intake is poor due to chronic nausea. Plan: -Continue Lantus 24 units at bedtime -Decrease IVF, as becoming euvolemic. -Sliding-scale insulin for now, will need carb based regimen as diet increased -Diabetes education and senior quality assurance analyst consults Nausea. The chronic condition for the patient, evaluated extensively along with his lightheadedness. By his description, had a normal gastric emptying study in the past. Abdomen is soft and nontender and has bowel sounds, not consistent with gastroparesis. Plan: Continue clear liquids, advance as tolerated. Continue Zofran, Compazine , supportive care Acute renal failure. Patient w/o history of renal disease per his history. Continues to improve with further fluid resuscitation. Creatinine 1.4 today on . Plan: -Continue IV fluids, though decrease the rate. -Continue to trend Cr Lactic acidosis. Resolved. Suspect secondary to DKA (D-lactic acidosis) and not sepsis. Leukocytosis. Possible stress response. Improving with treatment of DKA. Plan: Follow with Rx of DKA. Hyperkalema. Likely due to acidosis. Resolved. Did not develop significant hypokalemia after Tx of DKA. Plan: Monitor, replete if becomes hypokalemic Lightheadedness. Apparently a chronic problem with the patient, associated with nausea. In discussion, was told that it may be due to impairment in " blood flow to the brain". Worsens when he stands up, consistent with autonomic dysfunction. Plan: Supportive care. Code Status: FULL CODE Prophy: PPI and enoxaparin. Medical - PN: Qual - VTE Deep Vein Thrombosis/Pulmonary Embolism Present on Admission: No
[2017-06-12] MEDS: NEUTRA PHOS 1 PACKET PO SCH ×2 (15:55→21:04)
[2017-06-12] MEDS: 0.9 % SODIUM CHLORIDE 1,000 ML IV SCH (19:34)
[2017-06-12] MEDS ORDERED: INSULIN GLARGINE, HUMAN 1 UNIT/0.01 ML SQ SCH (21:00)
[2017-06-13] MEDS: DEXTROSE 5%-1/2NS 1,000 ML IV SCH (03:04)
[2017-06-13] MEDS: 0.9 % SODIUM CHLORIDE 10 ML SYRINGE IV SCH ×3 (05:18→21:10)
[2017-06-13 05:20] LABS: Basophils # (Auto) 0 K/mcL (0.0-0.3); Basophils % (Auto) 0.2 % (0.0-2.0); Eosinophils # (Auto) 0 K/mcL (0.0-0.7); Eosinophils % (Auto) 0.5 % (0.0-7.0); Granulocytes % (Auto) 73.3 % (38.0-78.0); Lymphocytes # (Auto) 1.4 K/mcL (1.5-4.8); Mean Cell Volume 101.3 fL (80.0-100.0); Mean Corpuscular HGB Conc 34.4 g/dL (31.0-36.0); Mean Corpuscular Hemoglobin 34.9 pg (26.0-34.0); Monocytes # (Auto) 0.6 K/mcL (0.1-0.9); Platelet Count 158 K/mcL (140-440); RBC 3.15 M/mcL (4.50-5.90)
[2017-06-13 05:59] LABS: ALT/SGPT 16 U/l (0-40); Albumin 2.8 gm/dL (3.2-5.2); Albumin/Globulin Ratio 1.3 (1.0-2.3); Alkaline Phosphatase 54 U/L (39-117); Bilirubin,Direct < 0.2 mg/dL (0.0-0.3); Blood Urea Nitrogen 6 mg/dl (6-20); Gamma Glutamyl Transpeptidase 26 U/L (8-61); Magnesium 1.7 mg/dL (1.6-2.5); Uric Acid 3.4 mg/dL (2.5-8.0)
[2017-06-13] MEDS ORDERED: POTASSIUM CHLORIDE 40 MEQ in DEXTROSE 5% IN WATER 500 ML IV ONE ×2 (07:00→15:00)
[2017-06-13] MEDS ORDERED: POTASSIUM PHOSPHATE 40 MEQ in DEXTROSE 5% IN WATER 500 ML IV ONE (07:16)
[2017-06-13] MEDS: PANTOPRAZOLE 40 MG TABLET PO SCH ×2 (07:26→16:50)
[2017-06-13] MEDS ORDERED: PANTOPRAZOLE 40 MG TABLET PO SCH (07:30)
[2017-06-13] MEDS: INSULIN LISPRO 1 UNIT/0.01 ML UNIT SQ SCH ×4 (07:32→21:06)
--- NOTE | 2017-06-13 08:56 | XRay Report ---
CLINICAL INFORMATION: Shortness substernal pain on deglutition TECHNIQUE: Single contrast barium was ingested under fluoroscopic observation spot films were obtained of the pharynx and esophagus FINDINGS: Tongue elevation and palate depression are normal resulting propulsion of barium bolus into pharyngeal region. The nasopharyngeus closes normally. Pharyngeal stripping, cricopharyngeal opening, primary peristaltic wave and lower esophageal sphincter opening are all normal. The epiglottis incompletely closes resulting in small amounts of descending aspiration with penetration into the laryngeal vestibule. No definite focal cords penetration into the trachea, however. This did not appear to elicit a cough reflex. There is a some small thin web extending across the anterior cervical esophagus at the C6 level. No other focal esophageal lesions. No hiatal hernia or reflux could be induced IMPRESSION: 1. Small amount of descending aspiration due to incomplete epiglottis closure. No definite focal cord penetration. Consider formal swallowing function by speech pathology 2. 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 This does not significantly narrow the esophagus or impede the passage of the barium bolus. Interpreted and Authenticated by: Shane Ha 06/13/17
[2017-06-13] MEDS: 0.9 % SODIUM CHLORIDE 1,000 ML IV SCH (08:57)
--- NOTE | 2017-06-13 09:05 | XRay Report ---
CLINICAL INFORMATION: Fever and elevated white blood cell count COMPARISON: 06/10/2017 FINDINGS: Heart size, mediastinum and pulmonary vessels are normal. Small vague infiltrate has developed in the right lateral lung base. Nipple shadows are again noted in the lower lung bases which appears symmetric. There are no effusions. Bones and soft tissues are normal. IMPRESSION: Small focal infiltrate developing in the right lateral lung base Interpreted and Authenticated by: Shane Ha 06/13/17
[2017-06-13] MEDS ORDERED: VANCOMYCIN PER PHARMACY IV SCH (09:11)
[2017-06-13] MEDS: ENOXAPARIN 40 MG/0.4 ML SYRINGE SQ SCH (09:46)
[2017-06-13] MEDS ORDERED: PIPERACILLIN SODIUM/TAZOBACTAM 3.375 GM in 0.9 % SODIUM CHLORIDE 50 ML IV SCH (10:00)
--- NOTE | 2017-06-13 10:04 | Internal Med Progress Note ---
Medical - PN: Subj Patient information: Note initiated : 06/13/17 at 10:01 am Service Date, if different from initiated Date: [] Patient: Prosper Alston 56 y/o M admitted on 06/10/17 for Hyperglycemic. Chief Complaint: [] Interval history: June 11: Feeling somewhat better this afternoon, anion gap is closed, has D5 and fluids, minimal basal insulin infusion. Has chronic nausea, did have some emesis after trying liquids this morning. His appetite is chronically very poor. He also has chronic lightheadedness. His been evaluated at [facility] in the past. Chest pain improved/resolved (from emesis). No dyspnea. No diarrhea. No dysuria, though urine output is decreased. June 12: Had persistent significant nausea and vomiting. Though somewhat better this morning. Having lower chest/subxiphoid pain when he attempts to swallow. No sensation of food sticking. Remains on a clear liquid diet. Pain improved after small dose of Tylenol today, now able to take clear liquids. Was on D5 half-normal saline infusion overnight, also received an acid supplemental fluids , maintaining adequate glucose control. We'll need to continue with dextrose and fluids until he is taking good oral intake to prevent recurrent DKA. June 13: Patient seen examined, patient doing much better today, has low grade temp which is persistant, The patient glucose level is also on the higher end. He complained of significant retrosternal pain yesterday which was associated with food, he was on PPI, he had a esophageogram done yesterday, report is pending. This AM he feels much better and is able to eat better. Diet advanced to full liquid diet today. Patient had CXR done which shows new right lower lobe infiltrate, Procalcitonin elevated, blood culture ordered and started on vanco and zosyn for HCAP pna. Fluids changed from d5 to NS given that his diet is improving and glucose elevated. Pertinent ROS: Denies headache, dizziness Denies chest pain, palpitations Denies cough or shortness of breath Denies abdominal pain, nausea or vomiting. 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) Elevated blood-pressure reading without diagnosis of hypertension (Chronic) Pancreatitis (Chronic) Prostate abscess (Chronic) Chews tobacco (Chronic) Esophagitis (Chronic) Adenomatous colon polyp (Chronic) Hypoactive sexual desire disorder (Chronic) Iritis (Chronic) Tubular adenoma (Inactive 09/21/14) Hypoglycemia (Resolved 08/08/14) Insulin-dependent diabetes mellitus with ketoacidosis (Inactive) Anemia (Inactive) - Constitutional Vitals: Vital Signs Temp Pulse Resp BP Pulse Ox 99.3 F H 75 18 145/83 100 06/13/17 04:21 06/12/17 20:00 06/12/17 20:00 06/13/17 04:21 06/12/17 20:00 Period Temp Pulse Resp BP Sys/[place] Pulse Ox Last 24 Hr 97.9 F-99.3 F 75-83 18-18 145-163/78-95 94-100 Intake and Output 06/12/17 06/13/17 06/13/17 21:59 05:59 13:59 Intake Total 1706.0909 / 1706.0909 1420 / 1420 59 / 59 Output Total 2850 / 2850 3075 / 3075 500 / 500 Balance -1143.9091 / -1143.9091 -1655 / -1655 -441 / -441 Weight 166 lb Intake & Output: Intake & Output 06/12/17 06/13/17 06/13/17 21:59 05:59 13:59 Intake Total 1706.0909 / 1706.0909 1420 / 1420 59 / 59 Output Total 2850 / 2850 3075 / 3075 500 / 500 Balance -1143.9091 / -1143.9091 -1655 / -1655 -441 / -441 Weight 166 lb Intake: IV 1316.0909 / 1316.0909 1000 / 1000 59 / 59 Sodium Chloride 0.9% 1,000 ml @ 59 / 59 75 mls/hr IV .[id number] Rx#: [id number] Dextrose 5%-1/2Ns IV Solution 1 807 / 807 1000 / 1000 ,000 ml @ 100 mls/hr IV .Q10H NAZ Rx#:[id number] Oral 390 / 390 420 / 420 Output: Void Amount 2850 / 2850 3075 / 3075 500 / 500 Other: Meal Dinner # Voids 1 Exam: Constitutional; Afebrile, cooperative, alert, not in distress. Eyes- No icterus, , No periorbital swelling Ears- Ext ear normal, hearing normal to conversation. Neck- Midline trachea, supple Respiratory system: Air Entry equal on both sides, No crackles or wheezing, no rhonchi. CVS- Rate rhythm regular, S1,S2 heard, no gallop, no rub. Abdomen- Soft nontender abdomen, no organomegaly, no tenderness, no guarding or rigidity, [employer]- AOOx3, moving all extremities, no gross focal deficit noted. Medical - PN: Obj Da - Labs CBC & Chem 7: 06/13/17 03:45 06/13/17 03:45 Labs: Abnormal Lab Results 06/13/17 06/13/17 06/12/17 03:45 03:45 03:40 WBC 14.1 H RBC 3.15 L 3.26 L Hgb 11.0 L 11.4 L Hct 31.9 L 33.1 L MCV 101.3 H 101.6 H MCH 34.9 H 34.9 H MPV Gran % 85.2 H Lymph % (Auto) 8.9 L Gran # 12.0 H Lymph # (Auto) 1.4 L 1.3 L Tripp # (Auto) ABG Methemoglobin VBG pH VBG pCO2 VBG pO2 VBG HCO3 VBG Total CO2 VBG O2 Saturation VBG Base Excess VBG Lactic Acid Carboxyhemoglobin Total Hemoglobin POC Sodium Potassium 2.9 L* POC Chloride Chloride Carbon Dioxide POC Total CO2 Anion Gap POC BUN BUN Creatinine POC Creatinine Glucose POC Glucose Uric Acid Calcium 7.8 L POC WB Ioniz Calcium Phosphorus 1.9 L Lactate Dehydrogenase Total Protein 5.0 L Albumin 2.8 L Beta-Hydroxybutyrate Urine Glucose (UA) Urine Ketones Urine Yeast (Budding) 06/12/17 06/11/17 06/11/17 03:40 16:33 12:09 WBC RBC Hgb Hct MCV MCH MPV Gran % Lymph % (Auto) Gran # Lymph # (Auto) Tripp # (Auto) ABG Methemoglobin VBG pH VBG pCO2 VBG pO2 VBG HCO3 VBG Total CO2 VBG O2 Saturation VBG Base Excess VBG Lactic Acid Carboxyhemoglobin Total Hemoglobin POC Sodium Potassium POC Chloride Chloride 95 L Carbon Dioxide POC Total CO2 Anion Gap POC BUN BUN 27 H 31 H Creatinine 1.4 H 1.6 H 1.8 H POC Creatinine Glucose 165 H 199 H POC Glucose Uric Acid Calcium 8.2 L 8.1 L 8.1 L POC WB Ioniz Calcium Phosphorus 1.6 L Lactate Dehydrogenase Total Protein 5.4 L Albumin 3.0 L Beta-Hydroxybutyrate Urine Glucose (UA) Urine Ketones Urine Yeast (Budding) 06/11/17 06/11/17 06/11/17 11:39 08:00 08:00 WBC 23.6 H RBC 3.19 L Hgb 11.1 L Hct 32.1 L MCV 100.8 H MCH 34.8 H MPV Gran % 84.1 H Lymph % (Auto) 8.4 L Gran # 19.8 H Lymph # (Auto) Tripp # (Auto) 1.5 H ABG Methemoglobin VBG pH VBG pCO2 VBG pO2 VBG HCO3 VBG Total CO2 VBG O2 Saturation VBG Base Excess VBG Lactic Acid Carboxyhemoglobin Total Hemoglobin POC Sodium Potassium POC Chloride Chloride 95 L Carbon Dioxide POC Total CO2 Anion Gap POC BUN BUN 33 H Creatinine 1.9 H POC Creatinine Glucose POC Glucose Uric Acid Calcium 8.1 L POC WB Ioniz Calcium Phosphorus Lactate Dehydrogenase Total Protein Albumin Beta-Hydroxybutyrate Urine Glucose (UA) >=500 A Urine Ketones 5/tr A Urine Yeast (Budding) Few A 06/11/17 06/11/17 06/11/17 03:58 03:58 03:58 WBC RBC Hgb Hct MCV MCH MPV Gran % Lymph % (Auto) Gran # Lymph # (Auto) Tripp # (Auto) ABG Methemoglobin 0.3 L VBG pH 7.48 H VBG pCO2 37.0 L VBG pO2 108 H VBG HCO3 VBG Total CO2 VBG O2 Saturation 92.6 H VBG Base Excess 3.1 H VBG Lactic Acid 2.5 H Carboxyhemoglobin 5.4 H Total Hemoglobin 10.6 L POC Sodium Potassium POC Chloride Chloride 93 L Carbon Dioxide POC Total CO2 Anion Gap POC BUN BUN 34 H Creatinine 2.1 H POC Creatinine Glucose 216 H POC Glucose Uric Acid 8.1 H Calcium 8.2 L POC WB Ioniz Calcium Phosphorus Lactate Dehydrogenase 268 H Total Protein 5.4 L Albumin 3.0 L Beta-Hydroxybutyrate Urine Glucose (UA) Urine Ketones Urine Yeast (Budding) 06/11/17 06/10/17 06/10/17 00:05 23:20 22:01 WBC RBC Hgb Hct MCV MCH MPV Gran % Lymph % (Auto) Gran # Lymph # (Auto) Tripp # (Auto) ABG Methemoglobin VBG pH VBG pCO2 VBG pO2 VBG HCO3 VBG Total CO2 VBG O2 Saturation VBG Base Excess VBG Lactic Acid 3.6 H Carboxyhemoglobin Total Hemoglobin POC Sodium Potassium POC Chloride Chloride 85 L Carbon Dioxide 21 L POC Total CO2 Anion Gap 28.0 H POC BUN BUN 35 H Creatinine 2.4 H POC Creatinine Glucose 460 H* POC Glucose Uric Acid Calcium 8.5 L POC WB Ioniz Calcium Phosphorus Lactate Dehydrogenase Total Protein Albumin Beta-Hydroxybutyrate 13.10 H Urine Glucose (UA) Urine Ketones Urine Yeast (Budding) 06/10/17 06/10/17 06/10/17 20:18 20:10 19:46 WBC RBC Hgb Hct MCV MCH MPV Gran % Lymph % (Auto) Gran # Lymph # (Auto) Tripp # (Auto) ABG Methemoglobin 0 L VBG pH 7.12 L* VBG pCO2 32.4 L VBG pO2 76 H VBG HCO3 10.3 L* VBG Total CO2 11.3 L VBG O2 Saturation 86.5 H VBG Base Excess -17.9 L VBG Lactic Acid 11.5 H* Carboxyhemoglobin 2.6 H Total Hemoglobin 13.4 L POC Sodium 129 L Potassium POC Chloride 84 L Chloride Carbon Dioxide POC Total CO2 12 L Anion Gap POC BUN 33 H BUN Creatinine POC Creatinine 2.7 H Glucose POC Glucose > 700 H* Uric Acid Calcium POC WB Ioniz Calcium 1.12 L Phosphorus Lactate Dehydrogenase Total Protein Albumin Beta-Hydroxybutyrate Urine Glucose (UA) Urine Ketones Urine Yeast (Budding) 06/10/17 06/10/17 06/10/17 19:46 19:46 00:05 WBC 31.1 H* RBC 4.21 L Hgb Hct MCV 102.7 H MCH 34.1 H MPV 11.1 H Gran % 88.0 H Lymph % (Auto) 4.6 L Gran # 27.4 H Lymph # (Auto) 1.4 L Tripp # (Auto) 1.9 H ABG Methemoglobin 0.3 L VBG pH VBG pCO2 37.4 L VBG pO2 60 H VBG HCO3 22.6 L VBG Total CO2 23.7 L VBG O2 Saturation 85.7 H VBG Base Excess VBG Lactic Acid Carboxyhemoglobin 3.0 H Total Hemoglobin 11.6 L POC Sodium Potassium 5.4 H POC Chloride Chloride 67 L Carbon Dioxide 8 L* POC Total CO2 Anion Gap POC BUN BUN 35 H Creatinine 3.0 H POC Creatinine Glucose 803 H* POC Glucose Uric Acid Calcium 10.7 H POC WB Ioniz Calcium Phosphorus Lactate Dehydrogenase Total Protein Albumin Beta-Hydroxybutyrate Urine Glucose (UA) Urine Ketones Urine Yeast (Budding) Meds: Medications Acetaminophen (Tylenol) 650 mg PO Q4-6HP PRN PRN Reason: PAIN/FEVER > 101 Dextrose (Dextrose 50%) 50 ml IV UD PRN PRN Reason: Hypoglycemia Diagnostic Test (Pha) (Accu-Chek) 1 each FS ACHS [facility] Last Admin: 06/13/17 07:32 Dose: 1 each Enoxaparin Sodium (Lovenox) 40 mg SQ DAILY [facility] Last Admin: 06/13/17 09:46 Dose: 40 mg Hydromorphone HCl (Dilaudid) 0.5 mg IV Q2HP PRN PRN Reason: Pain Last Admin: 06/12/17 15:51 Dose: 0.5 mg Potassium Phosphate 40 meq/ (Dextrose) 509.0909 mls @ 127.273 mls/hr IV ONCE ONE Stop: 06/13/17 11:15 Last Admin: 06/13/17 07:31 Dose: 127.273 mls/hr Potassium Chloride 40 meq/ (Dextrose) 520 mls @ 130 mls/hr IV ONCE ONE Stop: 06/13/17 18:59 Sodium Chloride (Sodium Chloride 0.9%) 1,000 mls @ 75 mls/hr IV .[id number] [facility] Stop: 06/14/17 10:24 Last Infusion: 06/13/17 09:44 Dose: 0 mls/hr Piperacillin Sod/Tazobactam (Sod 3.375 gm/ Sodium Chloride) 50 mls @ 100 mls/ hr IV Q6H [facility] Last Admin: 06/13/17 09:45 Dose: 100 mls/hr Vancomycin HCl 1,000 mg/ (Sodium Chloride) 250 mls @ 250 mls/hr IV Q12H [facility] Insulin Glargine (Lantus) 20 unit SQ HS [facility] Insulin Human Lispro (Humalog) 0 unit SQ ACHS [facility] PRN Reason: Protocol Last Admin: 06/13/17 07:32 Dose: Not Given Ondansetron HCl (Zofran) 4 mg IV Q4-6HP PRN PRN Reason: Nausea And Vomiting Last Admin: 06/12/17 21:00 Dose: 4 mg Pantoprazole Sodium (Protonix) 40 mg PO BIDAC [facility] Last Admin: 06/13/17 07:26 Dose: 40 mg Prochlorperazine Edisylate (Compazine) 5 mg IV Q4HP PRN PRN Reason: Nausea And Vomiting Last Admin: 06/12/17 11:30 Dose: 5 mg Sodium Chloride (Saline Flush) 10 ml IV Q8 [facility] Last Admin: 06/13/17 05:18 Dose: Not Given Vancomycin HCl (Vancomycin Per Pharmacy) 1 order IV UD [facility] - ABG Interpretation ABG results: 06/10/17 06/10/17 06/11/17 00:05 20:10 03:58 ABG Methemoglobin 0.3 L 0 L 0.3 L VBG pH 7.40 7.12 L* 7.48 H VBG pCO2 37.4 L 32.4 L 37.0 L VBG pO2 60 H 76 H 108 H VBG HCO3 22.6 L 10.3 L* 26.7 VBG Total CO2 23.7 L 11.3 L 27.8 VBG O2 Saturation 85.7 H 86.5 H 92.6 H VBG Base Excess -1.9 -17.9 L 3.1 H Medical - PN: A/P - Time Spent With Patient Total time spent is greater than 50% in coordination of care (as documented) at patient's floor/unit and/or counseling patient: - Narrative A/P Narrative: 56 y/o with Type 1 DM, presents with nausea, vomiting and elevated CBG at home. He has had problems controlling glucose at home and had to replace his pump access 2-3 times in early and mid-morning, which appear to be malfunctioning. DKA.- resolved, suspected etiology was insulin pump failure/needline failure. Patient also has PNA at this time Basal rate had been 0.3 units per hour on his insulin pump, Plan: -Continue Lantus but cut dose to 20 units qhs, given we are stopping his d5 drip , continue ssi insulin. -Sliding-scale insulin for now, advance diet as tolerated. -Diabetes education and rest room attendant consults Nausea/ retrosternal pain: LIkely gastrititis? Much improved, on bid ppi at this time, The chronic condition for the patient, evaluated extensively along with his lightheadedness. By his description, had a normal gastric emptying study in the past await barium swallow results. . Plan: advance diet as tolerated. Continue Zofran, Compazine, supportive care Acute renal failure. Patient w/o history of renal disease per his history. Continues to improve with further fluid resuscitation. Creatinine 1.1 Plan: -Continue IV fluids,and monitor HCAP Pneumonia Right lower lobe pna, noted on x ray today (06/13) blood cx sent started on vanco and zosyn. Lactic acidosis. Resolved. Suspect secondary to DKA (D-lactic acidosis) and not sepsis. Leukocytosis. Possible stress response. Improving with treatment of DKA. Pna playing a role? trending down. Plan: Follow with Rx of DKA. Hyperkalema. Likely due to acidosis. Resolved. Hypokalemia: K 2.9 replace now, and monitor Lightheadedness. Apparently a chronic problem with the patient, associated with nausea. In discussion, was told that it may be due to impairment in " blood flow to the brain". 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 Plan: Supportive care. Code Status: FULL CODE Prophylaxis: PPI and enoxaparin. Medical - PN: Qual - VTE Deep Vein Thrombosis/Pulmonary Embolism Present on Admission: No
[2017-06-13] MEDS: VANCOMYCIN 1,000 MG in 0.9 % SODIUM CHLORIDE 250 ML IV SCH ×2 (10:38→21:11)
[2017-06-13 11:52] LABS: Appearance,Urine CLEAR; Bacteria,Urine 0 /hpf (0); Bilirubin,Urine NEG (NEG); Color,Urine YELLOW; Glucose,Urine (UA) >=500 mg/dL (NEG); Leukocyte Esterase,Urine NEG /uL (NEG); Mucus,Urine FEW /hpf (0); Nitrate,Urine NEG (NEG); Protein,Urine NEG (NEG); Specific Gravity,Urine 1.013 (1.000-1.035); Urine Blood NEG mg/dL (<0.03); Urine RBC < 1 /hpf (0-1); Urine Squamous Epithelial Cell 1 /hpf (0-4); Urine WBC < 1 /hpf (0-4); Urobilinogen,Urine NEG (NEG)
[2017-06-13] MEDS ORDERED: MAGNESIUM HYDROXIDE 30 ML ORAL.SUSP PO ONE (12:08)
[2017-06-13] MEDS: PIPERACILLIN SODIUM/TAZOBACTAM 3.375 GM in 0.9 % SODIUM CHLORIDE 50 ML IV SCH ×2 (14:13→17:09)
[2017-06-13] MEDS ORDERED: VANCOMYCIN 500 MG VIAL ONE (21:00)
[2017-06-13] MEDS ORDERED: INSULIN GLARGINE, HUMAN 1 UNIT/0.01 ML SQ SCH ×2 (21:00)
[2017-06-13] MEDS ORDERED: ZOLPIDEM 5 MG TABLET PO PRN (22:25)
[2017-06-13] MEDS ORDERED: ZOLPIDEM 5 MG TABLET ONE (22:37)
[2017-06-14] MEDS: PIPERACILLIN SODIUM/TAZOBACTAM 3.375 GM in 0.9 % SODIUM CHLORIDE 50 ML IV SCH ×3 (01:04→14:19)
[2017-06-14] MEDS: 0.9 % SODIUM CHLORIDE 1,000 ML IV SCH (01:51)
[2017-06-14] MEDS: DEXTROSE 5%-1/2NS 1,000 ML IV SCH (02:11)
[2017-06-14] MEDS: 0.9 % SODIUM CHLORIDE 10 ML SYRINGE IV SCH (05:36)
[2017-06-14] MEDS ORDERED: DEXTROSE 50% 50 ML VIAL IV ONE (07:10)
[2017-06-14] MEDS: PANTOPRAZOLE 40 MG TABLET PO SCH (08:12)
[2017-06-14] MEDS: INSULIN LISPRO 1 UNIT/0.01 ML UNIT SQ SCH ×2 (08:12→11:36)
[2017-06-14 09:36] LABS: Basophils # (Auto) 0 K/mcL (0.0-0.3); Basophils % (Auto) 0.6 % (0.0-2.0); Eosinophils # (Auto) 0.1 K/mcL (0.0-0.7); Lymphocytes # (Auto) 1.8 K/mcL (1.5-4.8); Lymphocytes % (Auto) 24.6 % (15.5-49.0); Mean Cell Volume 100.9 fL (80.0-100.0); Mean Corpuscular HGB Conc 34.5 g/dL (31.0-36.0); Mean Corpuscular Hemoglobin 34.8 pg (26.0-34.0); Monocytes # (Auto) 0.8 K/mcL (0.1-0.9); Monocytes % (Auto) 10.8 % (1.0-12.0); Platelet Count 155 K/mcL (140-440); RBC 3.24 M/mcL (4.50-5.90); Red Cell Distribution Width 12.9 % (11.5-14.5)
[2017-06-14 09:37] LABS: ALT/SGPT 16 U/l (0-40); Albumin 3.1 gm/dL (3.2-5.2); Albumin/Globulin Ratio 1.3 (1.0-2.3); Alkaline Phosphatase 63 U/L (39-117); Bilirubin,Direct < 0.2 mg/dL (0.0-0.3); Blood Urea Nitrogen 5 mg/dl (6-20); Gamma Glutamyl Transpeptidase 27 U/L (8-61); Uric Acid 1.5 mg/dL (2.5-8.0)
[2017-06-14] MEDS ORDERED: POTASSIUM CHLORIDE 20 MEQ PACKET PO ONE (09:43)
[2017-06-14] MEDS ORDERED: POTASSIUM CHLORIDE 40 MEQ in DEXTROSE 5% IN WATER 500 ML IV ONE (09:44)
[2017-06-14] MEDS ORDERED: CALCIUM CARBONATE 500 MG TAB.CHEW CHEWED PRN (10:54)
[2017-06-14] MEDS ORDERED: CALCIUM CARBONATE 500 MG TAB.CHEW ONE (11:03)
[2017-06-14] MEDS: VANCOMYCIN 1,000 MG in 0.9 % SODIUM CHLORIDE 250 ML IV SCH (11:05)
[2017-06-14] MEDS: ENOXAPARIN 40 MG/0.4 ML SYRINGE SQ SCH (11:05)
--- NOTE | 2017-06-14 14:06 | Discharge Summary ---
Medical - DS: Prov Patient information: Note initiated : 06/14/17 at 2:03 pm Service Date, if different from initiated Date: [] Patient: Prosper Alston a 56 y/o M admitted on 06/10/17 for Hyperglycemic. Chief Complaint: [] Date of admission: 06/10/17 23:40 Discharge date: 06/14/17 Primary care physician: Mira Howard Admitting clinician: Nani Dueñas Consults: 06/10/17 22:23 Consult to Physician [CONS] Stat Comment: Consulting Provider: Nani Dueñas Reason For Exam: Physician to Consult Discharging clinician: Nadeen Mercedes Medical - DS: Meds - Discharge Medications Prescriptions: Insulin Glargine, Human [Lantus] 6 unit SQ QHS #1 vial Levofloxacin 750 mg PO DAILY #5 tab Active and Home Medications: Home Medications subcutaneous insulin pump See Dose Instructions SQ .MEDSUPPLY 02/08/15 [History Confirmed 06/11/17 Last Taken Unknown] Omeprazole [PriLOSEC] 20 mg PO ACB 06/10/17 [History Confirmed 06/10/17 Last Taken Unknown] Medical - DS: Hosp Hospital course: Mr. Alston is a 56 year old M with a history of type 1 diabetes, diabetic neuropathy, hypertension, not on meds, gastroesophageal reflux who presents with nausea, vomiting and elevated glucose. Patient states for the 1 week or so he's been having trouble getting his blood glucoses under control. Apparently he is been having hypoglycemia at night at times. Story rambles at times, and sometimes difficult to follow. Apparently he turned off his insulin pump overnight secondary to low glucose, woke early in the morning and restarted it. He awoke at 6 AM and found that it was suspended in disconnected. He started the pump at another site and went back to sleep. 8 AM his glucose is greater than 600, he again tried another site and fell asleep again. Subsequently family came and woke him up. His glucose was still high. He tried to take 10 or 20 units subcutaneously from his insulin vial, but that did not help. During this time he developed nausea with vomiting. He had emesis about every 20 minutes during most of the day. He is now complaining of some chest pain from the emesis and retching. He's had no chest tightness or squeezing. He is also complaining of vision changes, his vision becoming blurry than white. Because of these ongoing symptoms of hyperglycemia, EMS was summoned and he was brought to the emergency department. In ED, initial [id number]-[id number] testing showed a glucose greater than 700. Labs were drawn, he is bolus was insulin and started on insulin drip. Subsequently he is found to be significantly acidotic on VBG as well as on basic panel with low bicarbonate, had elevated lactate a 11. Beta-hydroxybutyrate elevated at 13.1, all consistent with DKA. DKA: Treated per protocol with insulin, IV fluids, the patient responded well to treatment. AT this time I am not sure if the insulin pump is functioning or if using the insulin pump is the best way to manage someone who is so brittle. During the hospital stay he was very brittle with his glucose control. I have advised the patient to hold off on the insulin pump for now, and start himself back on lantus humalog schedule. HE will take 6 units of lantus at bed time. He will follow up with his PCP as soon as possible early next week to determine the next course of action. The patient has his old supplies and humalog. I am writing a script for one vial of lantus at this time. Pneumonia: RIght basilar pna noted, not present on admission but later given low grade temp repeat x ray was done which showed the infection. Its plausible the infection was there but was not picked up on admission. He will complete 5 day course with levofloxacin as outpatient. GERD/ Epigastric pain: Patient had pain in the epigastric region after eating, barium swallow was reported as negative. He improved with PPI, he endorses chr lack of appetite. It would be useful for patient to follow up with GI as outpatient for possible EGD scopy. The rest of the hospital stay was uneventful. Discharge diagnosis: DKA, PNA, GERd. - Time Spent with Patient Total time spent providing and/or coordinating discharge services: Greater than 30 minutes Medical - DS: Exam - Constitutional Vitals: Vital Signs Temp Pulse Resp BP Pulse Ox 06/14/17 11:44 98.9 F 88 20 132/78 94 06/14/17 04:00 98.1 F 88 16 126/82 96 06/14/17 01:01 99.8 F H 91 H 14 122/87 98 06/13/17 20:00 98.7 F 89 18 175/95 99 06/13/17 16:00 98.9 F 91 H 18 161/95 95 Intake and Output 06/14/17 06/14/17 06/14/17 05:59 13:59 21:59 Intake Total 290 / 290 1238.0909 / 1238.0909 Balance 290 / 290 1238.0909 / 1238.0909 Intake: IV 50 / 50 763.0909 / 763.0909 Zosyn 3.375 gm In Sodium 50 / 50 50 / 50 Chloride 0.9% 50 ml @ 100 mls/ hr IV Q6H [facility] Rx#:[id number] Oral 240 / 240 475 / 475 Other: Meal 1/2 Egg Salad [place] Percent of Meal Consumed 50% Feeding Ability Independent # Voids 3 Additional comments: Constitutional; Afebrile, cooperative, alert, not in distress. Eyes- No icterus, , No periorbital swelling Ears- Ext ear normal, hearing normal to conversation. Neck- Midline trachea, supple Respiratory system: Air Entry equal on both sides, No crackles or wheezing, no rhonchi. CVS- Rate rhythm regular, S1,S2 heard, no gallop, no rub. Abdomen- Soft nontender abdomen, no organomegaly, no tenderness, no guarding or rigidity, [employer]IST- AOOx3, moving all extremities, no gross focal deficit noted. , Medical - DS: Data Labs on day of discharge: Labs from last 24 hours 06/14/17 06/14/17 06/14/17 10:00 04:15 04:00 WBC 7.4 RBC 3.24 L Hgb 11.3 L Hct 32.7 L MCV 100.9 H MCH 34.8 H MCHC 34.5 RDW 12.9 Plt Count 155 MPV 9.9 Gran % 63.0 Lymph % (Auto) 24.6 [place] % (Auto) 10.8 Eos % (Auto) 1.0 Baso % (Auto) 0.6 Gran # 4.7 Lymph # (Auto) 1.8 [place] # (Auto) 0.8 Eos # (Auto) 0.1 Baso # (Auto) 0 Sodium 140 Potassium 3.2 L Chloride 104 Carbon Dioxide 25 Anion Gap 11.0 BUN 5 L Creatinine 1.1 GFR Calculation 74 Glucose 34 L* Uric Acid 1.5 L Calcium 8.2 L Phosphorus 2.0 L Magnesium 2.0 Total Bilirubin 0.6 Direct Bilirubin < 0.2 GGT 27 AST 21 ALT 16 Alkaline Phosphatase 63 Lactate Dehydrogenase 171 Total Protein 5.4 L Albumin 3.1 L Globulin 2.3 Albumin/Globulin Ratio 1.3 Triglycerides 50 Vancomycin Trough 11.0 Preliminary micro results at discharge 06/13/17 09:31 Blood Culture - Preliminary Blood 06/13/17 09:26 Blood Culture - Preliminary Blood Medical - DS: A/P - Patient/Caregiver Discharge Instructions Activity: increase activity as tolerated Diet: Consistent Carbohydrate Additional Instructions: Take 6 units of lantus before bed time, Take sliding scale insulin (humalog) before meals depending on carb intake as you are doing before you started on the insulin pump. You had low Potassium during the hospital stay, Please eat foods with high potassium content. FOllow up with PCP in 2-4 days to monitor glucose and decide whether to continue on the insulin pump. Take your antibiotics and finish the course. Go to the ER if worsening symptoms or any other concerning symptmo. You will benefit from and EGD scopy to evaluate why you have loss of appetiite as well as pain in the upper abdomen when eating. Please follow up with GI physician for further evaluation. Prescriptions: Insulin Glargine, Human [Lantus] 6 unit SQ QHS #1 vial Levofloxacin 750 mg PO DAILY #5 tab - Follow up Plan Follow up with: Mira Howard ARNP [Primary Care Provider] - 06/17/17 12:00 pm Shane Morales MD [Physician] - Disposition: Home, Self-Care Prognosis: Fair Rehab Potential: Fair I certify that the patient requires SNF services: No Overall status at discharge: patient is progressing back to baseline Medical - DS: Qual - VTE Deep Vein Thrombosis/Pulmonary Embolism Present on Admission: No
[2017-06-14] MEDS ORDERED: INSULIN GLARGINE, HUMAN 1 UNIT/0.01 ML SQ SCH ×2 (21:00)
== END 2017-06-14 15:30 | disposition home or self-care (01) | DRG 637 ==
LOC: ED 19:35 → ICU 23:40
PROVIDERS: ADMIT Internal Medicine; ATTEND Internal Medicine